=== PATIENT | male | born 1990 | race African-American/Black ===

== ENCOUNTER 2017-02-24 11:40 | Emergency (ER) | END 2017-02-24 14:36 | disposition home or self-care (01) ==

== ENCOUNTER → 2017-02-27 | Emergency (ER) | END | disposition home or self-care (01) ==

== ENCOUNTER 2017-06-29 18:35 | Emergency (ER) | END 2017-06-29 23:25 | disposition home or self-care (01) ==

== ENCOUNTER 2017-07-01 05:10 | Emergency (ER) | END 2017-07-01 05:55 | disposition home or self-care (01) ==

== ENCOUNTER 2017-07-15 11:18 | Emergency (ER) | END 2017-07-15 15:36 | disposition home or self-care (01) ==

== ENCOUNTER 2017-10-09 08:02 | Emergency (ER) | END 2017-10-09 08:52 | disposition home or self-care (01) ==

== ENCOUNTER 2017-10-11 04:39 | Emergency (ER) | END 2017-10-11 05:15 | disposition home or self-care (01) ==

== ENCOUNTER 2017-10-15 06:40 | Emergency (ER) | END 2017-10-15 07:58 | disposition home or self-care (01) ==

== ENCOUNTER 2018-01-04 04:22 | Emergency (ER) | END 2018-01-04 05:58 | disposition home or self-care (01) ==

== ENCOUNTER 2018-03-15 06:27 | Emergency (ER) | payer OTHER ==
[~2018-03-15] VITALS: Wt 148.0 kg
[~2018-03-15 06:27] MED LIST: CEPH-443 PO; CLIN300C10 PO; HYDR-4011 PO; IBUP-1542 PO; OXYC-279 PO; SULF1TAB31 PO
[2018-03-15 06:29] VITALS: BP 133/73; PULSE 99; RESP 18
[2018-03-15] MEDS ORDERED: ONDANSETRON (ODT) 4 MG TAB ODT STA (06:40)
[2018-03-15] MEDS ORDERED: HYDROmorphONE 0.5 MG/0.5 ML SYG IM STA (06:40)
[2018-03-15] MEDS ORDERED: KETOROLAC 60 MG INJ IM STA (06:40)
[2018-03-15] MEDS ORDERED: CEPHALEXIN 500 MG CAP PO ONE (07:00)
[2018-03-15] MEDS ORDERED: TRIMETHOPRIM/SULFAMETHOX (DS) TAB PO ONE (07:00)
[2018-03-15] MEDS ORDERED: LIDOCAINE 1% (MDV) 20 ML INJ SC ONE (07:00)
[2018-03-15] MEDS ORDERED: CEPH-443 PO (07:51)
[2018-03-15] MEDS ORDERED: HYDR-4011 PO (07:51)
[2018-03-15] MEDS ORDERED: SULF1TAB31 PO (07:51)
--- NOTE | 2018-03-15 07:53 | ERD ---
ER Documentation Chief Complaint Chief Complaint POSSIBLE ABCESS LOWER BACK HPI 27-year-old male presents with 3-day history of pain and swelling on his sacral area. He has a history of recurrent pilonidal abscess. He said it drained approximately 14 times in the last few years. Denies any fevers, vomiting, discharge, bleeding. He is in the process of attempting to see a surgeon but is waiting for his new insurance. ROS All systems reviewed and are negative except as per history of present illness. Medications Home Meds Active Scripts Cephalexin* (Keflex*) 500 Mg Capsule, 500 MG PO QID for 7 Days, CAP Prov:ERENDIRA OROPEZA MD 03/15/18 Hydrocodone/Acetaminophen (Kelayres 5-325 Tablet) 1 Each Tablet, 1 TAB PO Q6H PRN for PAIN, #12 TAB Prov:ERENDIRA OROPEZA MD 03/15/18 Sulfamethoxazole/Trimethoprim* (Bactrim Ds* Tablet) 1 Each Tablet, 1 TAB PO BID, #7 TAB Prov:ERENDIRA OROPEZA MD 03/15/18 Ibuprofen* (Ibuprofen*) 600 Mg Tablet, 600 MG PO Q6H PRN for PAIN, #30 TAB Prov:SARA GREWAL DO 01/04/18 Hydrocodone/Acetaminophen (Kelayres 5-325 Tablet) 1 Each Tablet, 1 EACH PO Q6H PRN for PAIN, #10 TAB Prov:SARA GREWAL DO 01/04/18 Oxycodone HCl/Acetaminophen (Percocet 5-325 mg Tablet) 1 Each Tablet, 1 EACH PO QHS, #10 TAB Prov:MADDIE LANDRY PA-C 10/11/17 Cephalexin* (Keflex*) 500 Mg Capsule, 500 MG PO QID for 7 Days, CAP Prov:MADDIE LANDRY PA-C 10/09/17 Sulfamethoxazole/Trimethoprim* (Bactrim Ds* Tablet) 1 Each Tablet, 1 TAB PO BID, #14 TAB Prov:MADDIE LANDRY PA-C 10/09/17 Hydrocodone/Acetaminophen (Kelayres 5-325 Tablet) 1 Each Tablet, 1 TAB PO Q6H PRN for PAIN, #7 TAB Prov:MADDIE LANDRY PA-C 10/09/17 Hydrocodone/Acetaminophen (Kelayres 5-325 Tablet) 1 Each Tablet, 1 TAB PO Q6H PRN for PAIN, #7 TAB Prov:RAMON DE LA CRUZ-C 07/15/17 Hydrocodone/Acetaminophen (Kelayres 5-325 Tablet) 1 Each Tablet, 1 TAB PO Q6H PRN for PAIN, #10 TAB Prov:DIEGO العراقي-C 07/01/17 Clindamycin Hcl* (Clindamycin Hcl*) 300 Mg Capsule, 300 MG PO TID for 10 Days, CAP Prov:SHAI FLEMINGC 06/29/17 Hydrocodone/Acetaminophen (Kelayres 5-325 Tablet) 1 Each Tablet, 1 TAB PO Q6H PRN for PAIN, #7 TAB Prov:SHAI FLEMINGC 06/29/17 Sulfamethoxazole/Trimethoprim* (Bactrim Ds* Tablet) 1 Each Tablet, 1 TAB PO BID, #14 TAB Prov:SHAI FLEMINGC 06/29/17 Ibuprofen* (Motrin*) 600 Mg Tab, 600 MG PO Q6, #30 TAB Prov:МАРИНА AWADC 02/27/17 Cephalexin* (Keflex*) 500 Mg Capsule, 500 MG PO QID for 7 Days, CAP Prov:МАРИНА AWAD-C 02/27/17 Sulfamethoxazole/Trimethoprim* (Bactrim Ds* Tablet) 1 Each Tablet, 1 TAB PO BID for 7 Days, #14 TAB Prov:МАРИНА AWAD-C 02/27/17 Hydrocodone/Acetaminophen (Kelayres 5-325 Tablet) 1 Each Tablet, 1 TAB PO Q6H PRN for PAIN, #20 TAB Prov:ROSE MARIE FORBES MD 02/24/17 Clindamycin Hcl* (Clindamycin Hcl*) 300 Mg Capsule, 300 MG PO TID for 10 Days, CAP Prov:ROSE MARIE FORBES MD 02/24/17 Allergies Allergies: Coded Allergies: Penicillins (Verified Allergy, Unknown, 03/15/18) codeine (Verified Adverse Reaction, Mild, 03/15/18) PMhx/Soc History of Surgery: No Anesthesia Reaction: No Hx Neurological Disorder: No Hx Respiratory Disorders: No Hx Cardiac Disorders: No Hx Psychiatric Problems: No Hx Miscellaneous Medical Probl: No Hx Alcohol Use: No Hx Substance Use: No Hx Tobacco Use: No FmHx Family History: No diabetes, No coronary disease, No other Physical Exam Vitals Vital Signs Date Temp Pulse Resp B/P (MAP) Pulse Ox O2 O2 Flow FiO2 Time Delivery Rate 03/15/18 97.4 99 18 133/73 99 06:29 (93) Physical Exam Const: No acute distress Head: Atraumatic Eyes: Normal Conjunctiva ENT: Normal External Ears, Nose and Mouth. Neck: Full range of motion. No meningismus. Resp: Clear to auscultation bilaterally Cardio: Regular rate and rhythm, no murmurs Abd: Soft, non tender, non distended. Normal bowel sounds Skin: No petechiae or rashes. Swelling and scar tissue and slight redness in the pilonidal area. No induration, streaking. Back: No midline or flank tenderness Ext: No cyanosis, or edema Neur: Awake and alert Psych: Normal Mood and Affect Results 24 hrs Current Medications Medications Dose Sig/Sarah Start Time Status Last (Trade) Ordered Route PRN Stop Time Admin Dose Reason Admin 1 mg ONCE STAT 03/15/18 DC 03/15/18 Hydromorphone IM 06:40 06:58 HCl 03/15/18 06:43 (Dilaudid) Ondansetron 8 mg ONCE STAT 03/15/18 DC 03/15/18 HCl (Zofran ODT 06:40 06:57 Odt) 03/15/18 06:43 1 tab ONCE ONCE 03/15/18 DC 03/15/18 Trimethoprim/ PO 07:00 06:57 03/15/18 07:01 Sulfamethoxaz ole (Bactrim (Ds)) Cephalexin 500 mg ONCE ONCE 03/15/18 DC 03/15/18 (Keflex) PO 07:00 06:57 03/15/18 07:01 Ketorolac 60 mg ONCE STAT 03/15/18 DC 03/15/18 Tromethamine IM 06:40 06:57 (Toradol) 03/15/18 06:43 Lidocaine 20 ml ONCE ONCE 03/15/18 DC (Xylocaine SC 07:00 1% (Mdv) 20 03/15/18 07:01 ml) Procedures/MDM Patient presents with signs and symptoms of recurrent pilonidal abscess. Is no signs or symptoms of necrotizing fasciitis, sepsis. Seizure note-patient is given Dilaudid 1 mg IM and Toradol 60 mg IM. He was also given Bactrim and Keflex p.o. Procedure note-sacral area was prepped with Betadine. 6 cc of lidocaine was used for local infiltration. #11 scalpel was used to incise a mood. An area of pus was identified and expressed. Loculations broken up with a probe. Wound was packed with approximately 8 cm of quarter inch gauze. Patient tolerated procedure well and wound was dressed. Patient will be discharged home with recommendations for 3-day wound check for gauze removal. Patient return otherwise for fevers, worsening pain, new worsening symptoms. Departure Diagnosis: Primary Impression: Pilonidal abscess Condition: Stable Patient Instructions: Pilonidal Cyst, Infected (Incision And Drainage) Additional Instructions: Check in approximately 3 days for gauze removal. Recheck otherwise for new or worsening symptoms. ERENDIRA OROPEZA MD Mar 15, 2018 07:53
== END 2018-03-15 08:33 | disposition home or self-care (01) ==
LOC: FTE 06:27
DX: L05.01 Pilonidal cyst with abscess (principal)
CPT/HCPCS: 10080; 96372; J1170; J1885; Z7502; Z7610